=== PATIENT | female | born 1950 | race Caucasian/White ===

== ENCOUNTER 2017-08-22 21:50 | Observation (INO) | payer MEDICARE, SELFPAY ==
[2017-08-22 21:51] VITALS: BP 155/71; PULSE 111; RESP 20; TEMP 36.7; O2SAT 99; BMI 28.8
--- NOTE | 2017-08-22 22:14 | EKG12_ITS ---
Test Reason : CP Blood Pressure : / mmHG Vent. Rate : 106 BPM Atrial Rate : 106 BPM P-R Int : 160 ms QRS Dur : 074 ms QT Int : 348 ms P-R-T Axes : 036 -08 030 degrees QTc Int : 462 ms Sinus tachycardia Nonspecific ST abnormality Abnormal ECG Confirmed by LORRIE MATSON, BRIAN ([id number]), book or script editor BRENT SCHROEDER ([id number]) on 08/24/2017 1:46:28 PM Referred By: BARBARA Confirmed By:BRIAN ANDREW MD
--- NOTE | 2017-08-22 22:20 | ED.DCSUM_ITS ---
- ER Visit Summary Date of Service: 08/22/17 Chief Complaint: [] Chest pain History of Present Illness: The patient is a 66 F patient presents with chest pain for the last 4 hours gradual onset continuous aching right-sided pain. She feels it radiates to her right neck. Worsened by deep breathing. No sharp component. She took a full-strength aspirin. She had a remote stress test 30 years ago. It was negative. She has never had a heart cath. She has never had symptoms like this before. She has a history of high cholesterol and smoking. No other cardiovascular risk factors. No PE or dissection risk factors. Physical Examination: [] Vital signs reviewed General: Well-nourished well-developed Head: Normocephalic atraumatic Eyes: Pupils equal round and reactive to light extraocular movements intact ENT: TMs clear no hemotympanum no trauma Neck: Nontender full range of motion Cardiovascular: Regular tachycardia with normal rhythm no murmurs normal S1-S2 Respiratory: No distress clear to auscultation bilaterally chest nontender Abdomen: Soft nontender nondistended normal bowel sounds no masses Back: Nontender no CVA tenderness Extremities: Nontender active range of motion ?4 extremities no trauma no swelling of pain and Skin: Normal color no trauma Neuro alert oriented cranial nerves II through XII intact normal strength sensation reflexes Test Results: [] Emergency Department Course and Treatment: [] EKG shows sinus rhythm at a rate of 106. No ischemic findings. patient given sublingual nitroglycerin. CBC chemistry normal except potassium 3.4. Troponin negative. D-dimer 2.1. Chest x-ray shows focal airspace city left side. CT of the chest shows no PE or dissection. Mild dilation of the ascending and descending thoracic aorta consistent with ectasia. Sizes just larger than 4 cm. On reevaluation patient still has some mild discomfort. Nothing in her neck. She does not want any further pain medication. Nitroglycerin did help some. At this time I feel she should be admitted for further evaluation of her chest pain. Treatment Plan: [] Disposition: [] Impression: [] Chest pain Thoracic aortic ectasia This note was generated with Learn with Homer dictation software. It may contain incorrect words, spelling, and punctuation that were not noted in review of the chart prior to signing ED Disposition - Plan for ED Patient: Chief Complaint: Chest Pain Referrals: Jahaira Malik, DO [NON-STAFF] -
[2017-08-22 22:31] VITALS: BP 180/141; PULSE 99
--- NOTE | 2017-08-22 22:35 | RAD_ITS ---
XR Chest 2 Views INDICATION: chest pain COMPARISON: None TECHNIQUE: 2 views of the chest FINDINGS: Focal airspace opacity is noted at the left lung base with blunting of the posterior costophrenic angle. Right lung is clear. Heart size and pulmonary vascularity are within normal limits. RAD/Chest PA and Lateral IMPRESSION: Small focal airspace opacity in the left lower lobe posteriorly, may represent atelectasis or developing infiltrate, consider short-term follow-up. at 2333 Reported and signed by: Ruthann Brewster MD Electronically Signed: Ruthann Brewster MD at 22:31 EST Tel , Service support ,
[2017-08-22 22:36] VITALS: BP 163/122; PULSE 106
[2017-08-22 22:41] VITALS: BP 144/98; PULSE 110
[2017-08-22 22:44] LABS: Absolute Lymphocyte Count 2.88 X10^3/ul (0.83-4.51); Absolute Neutrophil Count 5.6 X10^3/uL (2.0-7.7); Basophil# 0.03 X10^3/uL; Basophil% 0.3 % (0-1); Eosinophil# 0.08 X10^3/uL; Eosinophils% 0.9 % (0-5); Hematocrit 41.6 % (37-47); Hemoglobin 13.2 g/dl (12.0-15.0); Lymphocyte # 2.88 X10^3/ul (4.0); Lymphocyte % 30.7 % (19-41); Mean Corp Hgb Conc 31.7 g/gl (32-36); Mean Corpuscular Hgb 30.4 pg (27.0-32.0); Mean Corpuscular Volume 95.9 fL (81-99); Mean Platelet Vol. 9.7 fl (6.2-12.0); Monocyte# 0.78 X10^3/uL; Monocyte% 8.3 % (0-10); Neutrophil # 5.61 X10^3/uL (2.7-7.7); Neutrophil % 59.7 % (47-70); Platelet Count 390 K/mm3 (150-450); RBC Distribution Width CV 14.7 % (11.6-14.6); RBC Distribution Width SD 51.5 fl (35.1-43.9); Red Blood Count 4.34 M/mm3 (4.2-5.4); White Blood Count 9.4 K/mm3 (4.4-11.0)
[2017-08-22 22:46] LABS: POSITIVE COUNT NO; POSITIVE DIFFERENTIAL NO; POSITIVE MORPHOLOGY NO
[2017-08-22 22:52] VITALS: BP 99/78; PULSE 104; RESP 20
[2017-08-22 22:58] LABS: Anion Gap 8 (5-15); BUN 16 mg/dL (7-18); BUN/Creat Ratio 26.7 RATIO (10-20); Calcium,Total 9.1 mg/dL (8.5-10.1); Chloride 106 mmol/L (98-107); EST Glomerular Filtration Rate 106 mL/min (>60); Est Glom Filt Rate - Afr Amer 128 mL/min (>60); Estimated Creatinine Clearance 51.81 ml/min; Glucose 114 mg/dL (74-106); Potassium 3.4 mmol/L (3.5-5.1); Sodium Level 142 mmol/L (136-145)
[2017-08-22 23:13] LABS: D-Dimer Quantitative (DVT/PE) 2.17 FEU/ug/m (0.27-0.49)
--- NOTE | 2017-08-22 23:15 | CT_ITS ---
STUDY: CTA CHEST REASON FOR EXAM: Female, 66 years old. Right-sided chest pain radiating into neck, elevated d-dimer and elevated blood pressure. RADIATION DOSAGE (If Supplied By Facility): CTDIvol = ( 15.03 ) mGy, DLP = ( 573.16 ) mGycm TECHNIQUE: The examination was performed with the intravenous administration of 100 ml of Isovue 370 contrast material. Post-processing of the angiographic images was performed, with multiplanar reformation and 3D reconstruction. Individualized dose optimization techniques were used for this CT. COMPARISON: Chest x-ray 08/22/2017 FINDINGS: Heterogeneous thyroid enhancement. Normal enhancement of the main pulmonary artery and right and left pulmonary arteries. Normal enhancement of the bilateral peripheral pulmonary arteries. There is no demonstrated pulmonary embolism. There is mild aneurysmal dilatation of the ascending aorta post valvular measuring 4.3 x 4.3 cm, the descending thoracic aorta measuring 3.4 x 3.5 cm. There is a focal outpouching/aneurysm involving the proximal descending thoracic aorta at the aortic arch level distal to the left subclavian artery origin. There is mild atherosclerosis of the aorta and along the aortic arch. The descending thoracic aorta at the diaphragm level measures 3.3 x 3.3 cm and enlarges to 3.4 x 4.1 cm, the abdominal aorta at the celiac artery origin measures 2.8 x 3.4 cm. The last obtained images demonstrate irregular enhancement with calcification just inferior to the proximal superior mesenteric artery course which may be due to an incompletely imaged vascular abnormality such as an aneurysm of the abdominal aorta. There is no demonstrated aortic dissection. Normal heart and pericardium. There are calcifications of the coronary arteries. Normal mediastinum. Normal hilar regions. Normal visualized trachea and bronchi. The lungs are well expanded. Linear interstitial changes involving the lung bases and left lingula some of which may be due to compression of parenchyma and atelectasis, there are no bronchograms to suggest acute focal pneumonia. Normal pleura. Normal chest wall structures. Normal osseous structures. Punctate nonobstructing left upper renal pole calculus. Status postcholecystectomy. CT/CTA Chest W/WO Contrast IMPRESSION: 1. No demonstrated pulmonary embolism, leak or arterial dissection. 2. Ectasia/mild aneurysm of the ascending thoracic aorta, proximal descending thoracic aorta just distal to the left subclavian artery origin and at the diaphragmatic hiatus level. 3. Possible vascular abnormality of the upper abdomen such as a aneurysm, incompletely imaged on last obtained image. Depending on symptoms, further assessment with CT abdomen and pelvis may be contiguous. 4. Atherosclerosis and coronary artery disease. 5. Suspect compression of the basilar parenchyma, scarring versus atelectasis. No confluent pneumonia detected. 6. Heterogeneous thyroid enhancement, this can be further assessed with ultrasound as needed. 7. Electronically Signed: Selam Mccoy MD at 0:48 EST , Service support ,
[2017-08-22] MEDS: 0.9% Normal Saline 1,000 ML 1000 ML IV (23:30)
[2017-08-22 23:32] VITALS: BP 117/93; PULSE 94; RESP 20; O2SAT 95
[2017-08-23] VITALS (11 sets, daily range): BP systolic 105–164; BP diastolic 69–102; PULSE 83–103; RESP 16–21; TEMP 36.3–36.8; O2SAT 93–95; BMI 28.8
--- NOTE | 2017-08-23 01:20 | PCM.HP.STD ---
Problem List (1) Chest pain Status: Acute Qualifiers: Chest pain type: unspecified Qualified Code(s): R07.9 - Chest pain, unspecified (2) Aortic aneurysm Status: Chronic Qualifiers: Aortic location: thoracic aorta Presence of rupture: without rupture Qualified Code(s): I71.2 - Thoracic aortic aneurysm, without rupture (3) Hypertension Status: Chronic Qualifiers: Hypertension type: unspecified Qualified Code(s): I10 - Essential (primary) hypertension (4) Smoking Status: Chronic History of Present Illness Date of Admission: 08/23/17 Chief Complaint: chest pain The patient is a 66 year old female patient presents to the ER with acute chest pain. Onset began after she took a shower this evening. She describes the pain as an ache on the right side of her chest with some radiation up her right neck. The pain was 8/10 when she arrived and is now 3/10. Initial troponin is negative and d-dimer was positive therefore a CTA of the chest was done. This was negative for PE but did reveal aneurysmal changes of the aorta. She has not had a cardiac stress test in many years. She continues to smoke and states she does not go to her doctor unless she is dying. She will be admitted for further cardiac workup. Past Medical History Past Medical History (Chronic Problems): Chronic Problems Aortic aneurysm (Chronic) Hypertension (Chronic) Smoking (Chronic) Allergies No Known Allergies Allergy (Verified 08/22/17 21:54) Home Medications: Ambulatory Orders Medication Instructions Recorded NK [NK] 08/22/17 Smoking Status: Current every day smoker - *Family History Maternal History Items: No pertinent history Review of Systems Constitutional: Denies: Chills, Fever, Weight Change HEENT: Denies: Head Aches, Sinus Congestion, Sinus Drainage Cardiovascular: Reports: Chest Pain, Chest Pressure. Denies: Palpitations Respiratory: Denies: Cough, Shortness of breath at rest, Sputum production Gastrointestinal: Denies: Abdominal Pain, Nausea, Vomiting Genitourinary: Denies: Dysuria Musculoskeletal: Denies: Joint Pain, Joint Tenderness Skin: Denies: Rash, Wounds Neurological: Denies: Numbness, Tingling, Focal weakness Psychiatric: Denies: Anxiety, Depression, Homicidal Ideations, Suicidal Ideations Hematologic/ Lymphatic: Denies: Easy Bruising, Easy Bleeding VTE Information - Inpt Only VTE Present on Admission: No VTE Mechan Device Prophylaxis: None VTE Pharm Prophylaxis ordered?: Yes Patient Problems: Active and Suspected Problems Chest pain (Acute) - Physical Exam General: Alert, Oriented x3, Cooperative HEENT: Atraumatic, Normocephalic Neck: Supple Lungs: Clear to auscultation, Normal air movement, No rhonchi, No wheeze, No rales Cardiovascular: Regular rate, Regular Rhythm, Normal S1, Normal S2, No murmurs Abdomen: Bowel Sounds Present, Soft, Non Tender Extremities: No edema Skin: No rashes Musculoskeletal: No Tenderness to Palpation of Joints or Extremities Neurological: Neuro grossly intact Psych/Mental Status: Normal Affect, Appropriate Vital Signs Temp Pulse Resp BP Pulse Ox 98.0 F 83 18 105/73 95 08/22/17 21:51 08/23/17 00:08 08/23/17 00:08 08/23/17 00:08 08/22/17 23:32 Oxygen Flow Rate 2 Oxygen Delivery Method Room Air Weight: 178 lb 5.663 oz Body Mass Index (BMI) 28.8 Laboratory Tests Past 24 Hrs 08/22/17 08/22/17 08/22/17 22:30 22:30 22:30 WBC 9.4 RBC 4.34 Hgb 13.2 Hct 41.6 MCV 95.9 MCH 30.4 MCHC 31.7 L RDW 14.7 H RDW Differential 51.5 H Plt Count 390 MPV 9.7 Immature Gran % (Auto) 0.100 Neut % (Auto) 59.7 Lymph % (Auto) 30.7 [place] % (Auto) 8.3 Eos % (Auto) 0.9 Baso % (Auto) 0.3 Absolute Neuts (auto) 5.6 Absolute Lymphs (auto) 2.88 Total Counted Not Reportable D-Dimer Quant (PE/DVT) 2.17 H* Sodium 142 Potassium 3.4 L Chloride 106 Carbon Dioxide 28.0 Anion Gap 8 BUN 16 Creatinine 0.60 Estim Creat Clear Calc 51.81 Est GFR (MDRD) Af Amer 128 Est GFR (MDRD) Non-Af 106 BUN/Creatinine Ratio 26.7 H Glucose 114 H Calcium 9.1 Troponin I < 0.02 Assessment/Plan Active and Suspected Problems Chest pain (Acute) Chronic conditions - aortic aneurysm 4cm - smoking - hypertension Plan - admit to progressive care unit for observation - morphine, oxygen, nitro and aspirin per routine protocol - nuclear stress test in am when cardiac enzymes are negative - smoking cessation discussed and strongly encouraged with finding of aneurysm ([id number]) - continue routine medications - perhaps a beta-myra at discharge would be helpful and close follow up with PCP - LMWH for DVT prophylaxis Code Visit OBSV E&M: 09593 Initial observation care L2
--- NOTE | 2017-08-23 01:28 | HP.PCM_ITS ---
Problem List (1) Chest pain Status: Acute Qualifiers: Chest pain type: unspecified Qualified Code(s): R07.9 - Chest pain, unspecified (2) Aortic aneurysm Status: Chronic Qualifiers: Aortic location: thoracic aorta Presence of rupture: without rupture Qualified Code(s): I71.2 - Thoracic aortic aneurysm, without rupture (3) Hypertension Status: Chronic Qualifiers: Hypertension type: unspecified Qualified Code(s): I10 - Essential (primary ) hypertension (4) Smoking Status: Chronic History of Present Illness Date of Admission: 08/23/17 Chief Complaint: chest pain The patient is a 66 year old female patient presents to the ER with acute chest pain. Onset began after she took a shower this evening. She describes the pain as an ache on the right side of her chest with some radiation up her right neck. The pain was 8/10 when she arrived and is now 3/10. Initial troponin is negative and d-dimer was positive therefore a CTA of the chest was done. This was negative for PE but did reveal aneurysmal changes of the aorta. She has not had a cardiac stress test in many years. She continues to smoke and states she does not go to her doctor unless she is dying. She will be admitted for further cardiac workup. Past Medical History Past Medical History (Chronic Problems): Chronic Problems Aortic aneurysm (Chronic) Hypertension (Chronic) Smoking (Chronic) Allergies No Known Allergies Allergy (Verified 08/22/17 21:54) Home Medications: Ambulatory Orders Medication Instructions Recorded NK [NK] 08/22/17 Smoking Status: Current every day smoker - *Family History Maternal History Items: No pertinent history Review of Systems Constitutional: Denies: Chills, Fever, Weight Change HEENT: Denies: Head Aches, Sinus Congestion, Sinus Drainage Cardiovascular: Reports: Chest Pain, Chest Pressure. Denies: Palpitations Respiratory: Denies: Cough, Shortness of breath at rest, Sputum production Gastrointestinal: Denies: Abdominal Pain, Nausea, Vomiting Genitourinary: Denies: Dysuria Musculoskeletal: Denies: Joint Pain, Joint Tenderness Skin: Denies: Rash, Wounds Neurological: Denies: Numbness, Tingling, Focal weakness Psychiatric: Denies: Anxiety, Depression, Homicidal Ideations, Suicidal Ideations Hematologic/ Lymphatic: Denies: Easy Bruising, Easy Bleeding VTE Information - Inpt Only VTE Present on Admission: No VTE Mechan Device Prophylaxis: None VTE Pharm Prophylaxis ordered?: Yes Patient Problems: Active and Suspected Problems Chest pain (Acute) - Physical Exam General: Alert, Oriented x3, Cooperative HEENT: Atraumatic, Normocephalic Neck: Supple Lungs: Clear to auscultation, Normal air movement, No rhonchi, No wheeze, No rales Cardiovascular: Regular rate, Regular Rhythm, Normal S1, Normal S2, No murmurs Abdomen: Bowel Sounds Present, Soft, Non Tender Extremities: No edema Skin: No rashes Musculoskeletal: No Tenderness to Palpation of Joints or Extremities Neurological: Neuro grossly intact Psych/Mental Status: Normal Affect, Appropriate Vital Signs Temp Pulse Resp BP Pulse Ox 98.0 F 83 18 105/73 95 08/22/17 21:51 08/23/17 00:08 08/23/17 00:08 08/23/17 00:08 08/22/17 23:32 Oxygen Flow Rate 2 Oxygen Delivery Method Room Air Weight: 178 lb 5.663 oz Body Mass Index (BMI) 28.8 Laboratory Tests Past 24 Hrs 08/22/17 08/22/17 08/22/17 22:30 22:30 22:30 WBC 9.4 RBC 4.34 Hgb 13.2 Hct 41.6 MCV 95.9 MCH 30.4 MCHC 31.7 L RDW 14.7 H RDW Differential 51.5 H Plt Count 390 MPV 9.7 Immature Gran % (Auto) 0.100 Neut % (Auto) 59.7 Lymph % (Auto) 30.7 [place] % (Auto) 8.3 Eos % (Auto) 0.9 Baso % (Auto) 0.3 Absolute Neuts (auto) 5.6 Absolute Lymphs (auto) 2.88 Total Counted Not Reportable D-Dimer Quant (PE/DVT) 2.17 H* Sodium 142 Potassium 3.4 L Chloride 106 Carbon Dioxide 28.0 Anion Gap 8 BUN 16 Creatinine 0.60 Estim Creat Clear Calc 51.81 Est GFR (MDRD) Af Amer 128 Est GFR (MDRD) Non-Af 106 BUN/Creatinine Ratio 26.7 H Glucose 114 H Calcium 9.1 Troponin I < 0.02 Assessment/Plan Active and Suspected Problems Chest pain (Acute) Chronic conditions - aortic aneurysm 4cm - smoking - hypertension Plan - admit to progressive care unit for observation - morphine, oxygen, nitro and aspirin per routine protocol - nuclear stress test in am when cardiac enzymes are negative - smoking cessation discussed and strongly encouraged with finding of aneurysm ( [id number]) - continue routine medications - perhaps a beta-myra at discharge would be helpful and close follow up with PCP - LMWH for DVT prophylaxis Code Visit OBSV E&M: 40659 Initial observation care L2
--- NOTE | 2017-08-23 02:49 | EKG12_ITS ---
Test Reason : AM Blood Pressure : / mmHG Vent. Rate : 101 BPM Atrial Rate : 101 BPM P-R Int : 160 ms QRS Dur : 080 ms QT Int : 354 ms P-R-T Axes : 007 -11 015 degrees QTc Int : 459 ms Sinus tachycardia with occasional Premature ventricular complexes Inferior infarct , age undetermined Abnormal ECG When compared with ECG of 25-APR-2009 08:07, Premature ventricular complexes are now Present Inferior infarct is now Present Confirmed by ISABEL RANDLE ([id number]), news editor BRENT SCHROEDER ([id number]) on 08/25/2017 3:16:40 PM Referred By: SHERIN Confirmed By:ISABEL RANDLE
[2017-08-23] MEDS: Aspirin E.C. 81 MG Tablet PO (06:23)
[2017-08-23 07:07] LABS: Absolute Neutrophil Count 6.5 X10^3/uL (2.0-7.7); Basophil# 0.06 X10^3/uL; Basophil% 0.6 % (0-1); Eosinophil# 0.03 X10^3/uL; Eosinophils% 0.3 % (0-5); Hematocrit 39.7 % (37-47); Hemoglobin 12.8 g/dl (12.0-15.0); Lymphocyte % 21.7 % (19-41); Mean Corp Hgb Conc 32.2 g/gl (32-36); Mean Corpuscular Hgb 30.8 pg (27.0-32.0); Mean Corpuscular Volume 95.7 fL (81-99); Mean Platelet Vol. 9.8 fl (6.2-12.0); Monocyte# 0.93 X10^3/uL; Monocyte% 9.6 % (0-10); Neutrophil # 6.54 X10^3/uL (2.7-7.7); Neutrophil % 67.7 % (47-70); Platelet Count 373 K/mm3 (150-450); RBC Distribution Width CV 14.7 % (11.6-14.6); RBC Distribution Width SD 49.5 fl (35.1-43.9); Red Blood Count 4.15 M/mm3 (4.2-5.4); White Blood Count 9.7 K/mm3 (4.4-11.0)
[2017-08-23 07:08] LABS: International Normalized Ratio 1.2; Prothrombin Time (Protime)PT. 14.3 SECONDS (11.7-14.9)
[2017-08-23 07:09] LABS: Partial Thromboplast Time 29.8 Seconds (24.1-36.2)
[2017-08-23 07:10] LABS: POSITIVE COUNT NO; POSITIVE DIFFERENTIAL NO; POSITIVE MORPHOLOGY NO
[2017-08-23 07:35] LABS: ALB/GLOB Ratio 0.8 RATIO (0.9-2.4); AST(SGOT) 19 U/L (15-37); Alanine Aminotransfer ALT/SGPT 27 U/L (13-56); Albumin, Serum 3.4 g/dL (3.2-5.0); Alkaline Phosphatase 104 U/L (45-117); Anion Gap 10 (5-15); BUN 10 mg/dL (7-18); BUN/Creat Ratio 19.6 RATIO (10-20); Calcium,Total 8.7 mg/dL (8.5-10.1); Chloride 106 mmol/L (98-107); Cholesterol 214 mg/dL (200); Creatinine, Serum 0.51 mg/dL (0.55-1.02); EST Glomerular Filtration Rate 128 mL/min (>60); Est Glom Filt Rate - Afr Amer 155 mL/min (>60); Estimated Creatinine Clearance 51.81 ml/min; Globulin 4.3 g/dL (2.2-4.2); Glucose 112 mg/dL (74-106); High Density Lipoprotein 40 mg/dL; Potassium 3.7 mmol/L (3.5-5.1); Protein, Total 7.7 g/dL (6.4-8.2); Sodium Level 142 mmol/L (136-145); Thyroid Stim Hormone (TSH) 1.01 uIU/mL (0.358-3.74); Triglycerides 263 mg/dL; Very Low Density Lipoprotein 53 mg/dL (5-40)
--- NOTE | 2017-08-23 14:52 | STRESSREP ---
Stress Test Report Date: 08/23/2017 Procedure: Exercise tolerance test/imaging study Indication: Chest pain Sent: Per the patient Procedure: The patient exercised on a José Antonio protocol for 4 minutes 45 seconds completing stage I and I minute 45 seconds of stage II achieving a peak heart rate of 136 bpm (88% predicted maximal heart rate) with a peak blood pressure 142/78 mmHg and a peak MET capacity of approximately 6 MET's. The baseline ECG demonstrated normal sinus rhythm. The peak exercise ECG demonstrated no obvious ECG changes. There was a rare PVC during exercise. The functional capacity was considered decreased. There was no report of chest discomfort during exercise or recovery. The examination was discontinued secondary to dyspnea. Impression: 1. Technically adequate (percent predicted maximal heart rate greater than 85%) exercise tolerance test 2. Peak exercise ECG with no obvious ECG changes 3. Rare PVC during exercise 4. Nuclear images pending Myocardial imaging study: Technique: The patient was injected with 11.4 mCi of technetium 99m Cardiolite and subsequently rest SPECT Cardiolite nuclear imaging was obtained in the horizontal long, vertical long, and short axis views. The patient exercised on a José Antonio protocol for 4 minutes 45 seconds completing stage I and I minute 45 seconds of stage II achieving a peak heart rate of 136 bpm (88% predicted maximal heart rate) with a peak blood pressure 142/78 mmHg and a peak MET capacity of approximately 6 MET's the patient was injected with 32.3 mCi of technetium 99m Cardiolite and subsequently stress SPECT Cardiolite nuclear imaging was obtained in the horizontal long, vertical long, and short axis views. A gated Cardiolite study at peak stress was obtained. Interpretation: Rest and stress SPECT Cardiolite nuclear imaging status post realignment, normalization, and attenuation correction demonstrates the appearance of relative uniform tracer uptake and myocardial perfusion appearing within normal limits. There is end systolic thickening and brightening. The gated Cardiolite study demonstrates myocardial thickening and inward wall motion. The reported LVEF is 85%. Impression: 1. Rest and stress SPECT cardio light nuclear imaging demonstrate relative uniform tracer uptake and myocardial perfusion appearing within normal limits. 2. The gated Cardiolite study reports an LVEF of 75%. This note was generated with [employer] software. It may contain incorrect words, spelling, and punctuation that were not noted in checking the note before signing.
--- NOTE | 2017-08-23 14:55 | PCM.DC ---
- Discharge Diagnoses Current Active Problems: Current Active and Chronic Problems Chest pain (Acute) Aortic aneurysm (Chronic) Hypertension (Chronic) Smoking (Chronic) You will use the following diet at home:: Regular, Cardiac Discharge Activity: Return to Normal Activity Instructions: ED Chest Pain NonCardiac Allergies/Adverse Reactions: Allergies No Known Allergies Allergy (Verified 08/22/17 21:54) Primary Care Physician: Jahaira Malik DO [NON-STAFF] - In 1 Week
--- NOTE | 2017-08-23 14:56 | PCM.DC.SUM ---
Discharge Date and Diagnosis Date of Admission: 08/23/17 Date of Discharge: 08/23/17 - Primary Discharge Diagnosis Active and Suspected Problems Chest pain (Acute) - Secondary Discharge Diagnosis Chronic Problems Aortic aneurysm (Chronic) Hypertension (Chronic) Smoking (Chronic) Hospital Course and Treatment Summary of Care Provided: This a 66 year old female patient presents to the ED with acute chest pain. This started after she took a shower in the evening chest pain was located on the right side of her chest wall and radiated to the neck so patient presented to the emergency room for evaluation. CT scan of the chest PE protocol was obtained and negative. Patient was then admitted to the hospital for observation, she ruled out acute coronary syndrome with negative cardiac enzymes. He then underwent a stress test that was negative for ischemia and she was discharged home in a stable condition. Discharge Diet: No Restrictions Discharge Activity: Return to Normal Activity Primary Care Physician: Jahaira Malik DO [NON-STAFF] - In 1 Week Patient Instructions: ED Chest Pain NonCardiac Meaningful Use Info Meaningful Use Diagnoses (Choose all that apply): None applicable Code Visit OBSV E&M: 44028 Observation care discharge
--- NOTE | 2017-08-23 14:58 | STRESSREP_ITS ---
Stress Test Report Date: 08/23/2017 Procedure: Exercise tolerance test/imaging study Indication: Chest pain Sent: Per the patient Procedure: The patient exercised on a José Antonio protocol for 4 minutes 45 seconds completing stage I and I minute 45 seconds of stage II achieving a peak heart rate of 136 bpm (88% predicted maximal heart rate) with a peak blood pressure 142/78 mmHg and a peak MET capacity of approximately 6 MET's. The baseline ECG demonstrated normal sinus rhythm. The peak exercise ECG demonstrated no obvious ECG changes. There was a rare PVC during exercise. The functional capacity was considered decreased. There was no report of chest discomfort during exercise or recovery. The examination was discontinued secondary to dyspnea. Impression: 1. Technically adequate (percent predicted maximal heart rate greater than 85% ) exercise tolerance test 2. Peak exercise ECG with no obvious ECG changes 3. Rare PVC during exercise 4. Nuclear images pending Myocardial imaging study: Technique: The patient was injected with 11.4 mCi of technetium 99m Cardiolite and subsequently rest SPECT Cardiolite nuclear imaging was obtained in the horizontal long, vertical long, and short axis views. The patient exercised on a José Antonio protocol for 4 minutes 45 seconds completing stage I and I minute 45 seconds of stage II achieving a peak heart rate of 136 bpm (88% predicted maximal heart rate) with a peak blood pressure 142/78 mmHg and a peak MET capacity of approximately 6 MET's the patient was injected with 32.3 mCi of technetium 99m Cardiolite and subsequently stress SPECT Cardiolite nuclear imaging was obtained in the horizontal long, vertical long, and short axis views. A gated Cardiolite study at peak stress was obtained. Interpretation: Rest and stress SPECT Cardiolite nuclear imaging status post realignment, normalization, and attenuation correction demonstrates the appearance of relative uniform tracer uptake and myocardial perfusion appearing within normal limits. There is end systolic thickening and brightening. The gated Cardiolite study demonstrates myocardial thickening and inward wall motion. The reported LVEF is 85%. Impression: 1. Rest and stress SPECT cardio light nuclear imaging demonstrate relative uniform tracer uptake and myocardial perfusion appearing within normal limits. 2. The gated Cardiolite study reports an LVEF of 75%. This note was generated with [employer] software. It may contain incorrect words, spelling, and punctuation that were not noted in checking the note before signing.
== END 2017-08-23 15:32 | disposition home or self-care (01) ==
LOC: ED 23:18 → PCU 08-23 01:35
PROVIDERS: Admitting Provider Family Medicine; Emergency Provider Emergency Medicine; Visit Provider Internal Medicine
DX: R07.89 Other chest pain (principal); E78.00 Pure hypercholesterolemia, unspecified; F17.200 Nicotine dependence, unspecified, uncomplicated; I71.2 Thoracic aortic aneurysm, without rupture; I10 Essential (primary) hypertension
CPT/HCPCS: 36415; 71046; 71275; 78452; 80048; 80053; 80061; 82248; 83735; 84443; 84484; 85025; 85379; 85610; 85730; 93005; 93017; 96360; 96361; 99218; 99283; A9500; J7030; Q9967; A4216; G0378

== ENCOUNTER 2017-10-23 01:03 | Emergency (ER) | payer MEDICARE, SELFPAY ==
[2017-10-23] VITALS (12 sets, daily range): BP systolic 63–128; BP diastolic 33–82; PULSE 95–114; RESP 18–39; TEMP 35.1–35.6; O2SAT 91–98; BMI 31.6
[2017-10-23] MEDS: 0.9% Normal Saline 1,000 ML 1000 ML IV (01:20)
--- NOTE | 2017-10-23 01:32 | EKG12_ITS ---
Test Reason : ABD PAIN Blood Pressure : / mmHG Vent. Rate : 104 BPM Atrial Rate : 104 BPM P-R Int : 144 ms QRS Dur : 086 ms QT Int : 370 ms P-R-T Axes : 041 029 -21 degrees QTc Int : [address] & T wave abnormality, consider inferior ischemia Abnormal ECG Confirmed by LORRIE MATSON, BRIAN ([id number]), newspaper or periodical editor BRENT SCHROEDER ([id number]) on 10/24/2017 2:19:15 PM Referred By: SAGRARIO Confirmed By:BRIAN ANDREW MD
--- NOTE | 2017-10-23 01:32 | CT_ITS ---
STUDY: CT ABDOMEN AND PELVIS WITH CONTRAST REASON FOR EXAM: Female, 67 years old. Abdominal pain and weakness RADIATION DOSAGE (If Supplied By Facility): CTDIvol = ( 26.21 ) mGy, DLP = ( 1418.03 ) mGycm TECHNIQUE: Transaxial images were obtained from the dome of the diaphragm to the symphysis pubis without oral contrast. 100 ml of Isovue 300 contrast was administered. Sagittal and coronal images were reconstructed. Individualized dose optimization techniques were used for this CT. COMPARISON: None. FINDINGS: The visualized lung bases are unremarkable. The visualized portions of the heart are within normal limits. There is decreased attenuation of the liver consistent with steatosis. There are surgical clips in the gallbladder fossa consistent with a prior cholecystectomy. Normal spleen. Normal pancreas. Normal bilateral adrenal glands. 2 mm nonobstructing right renal calculus. Normal left kidney. Normal visualized stomach. Normal small intestine. There are multiple colonic diverticula consistent with diverticulosis. The appendix is visualized and appears normal. An infrarenal abdominal aortic aneurysm is present that measures up to 9.5 cm in diameter. It extends from just below the renal arteries to the iliac bifurcation. Acute abdominal aortic aneurysm rupture and extravasation is noted on the left side with evolving extensive left periaortic, perinephric, and retroperitoneal hematoma formation. There is displacement of the left kidney anteriorly. Blood products are present extensively in the left retroperitoneum extending into the pelvis. Normal inferior vena cava. Normal urinary bladder. The left gonadal artery arises from the left renal artery. Normal abdominal wall. Normal osseous structures. CT/Abdomen/Pelvis W IV Cont ONLY IMPRESSION: 9.5 cm abdominal aortic aneurysm with acute rupture and extravasation on the left side. Extensive left retroperitoneal hemorrhage extending into the pelvis. Critical results relayed by telephone to Dr. Antunez at 1:59 AM on 10/23/2017. N.B. : The above information has been verbally conveyed by Greg Perez MD to , Covering Physician, on 10/23/2017 02:03:16 (ET). Electronically Signed: Greg Perez MD at 2:04 EDT Tel , Service support , N.B. : The above information has been verbally conveyed by Greg Perez MD to , [facility] Physician, on 10/23/2017 02:03:16 (ET).
[2017-10-23] MEDS: Ondansetron 4 MG/2 ML Vial IV (01:47)
[2017-10-23 01:50] LABS: Absolute Lymphocyte Count 2.12 X10^3/ul (0.83-4.51); Basophil# 0.02 X10^3/uL; Basophil% 0.1 % (0-1); Eosinophil# 0.02 X10^3/uL; Eosinophils% 0.1 % (0-5); Hematocrit 40.4 % (37-47); Hemoglobin 12.4 g/dl (12.0-15.0); Lymphocyte # 2.12 X10^3/ul (4.0); Lymphocyte % 12.9 % (19-41); Mean Corp Hgb Conc 30.7 g/gl (32-36); Mean Corpuscular Hgb 30.6 pg (27.0-32.0); Mean Corpuscular Volume 99.8 fL (81-99); Mean Platelet Vol. 10.6 fl (6.2-12.0); Monocyte# 1.23 X10^3/uL; Monocyte% 7.5 % (0-10); Neutrophil # 12.96 X10^3/uL (2.7-7.7); Neutrophil % 78.9 % (47-70); Platelet Count 312 K/mm3 (150-450); RBC Distribution Width CV 15.4 % (11.6-14.6); RBC Distribution Width SD 56.1 fl (35.1-43.9); Red Blood Count 4.05 M/mm3 (4.2-5.4); White Blood Count 16.4 K/mm3 (4.4-11.0)
[2017-10-23 01:51] LABS: POSITIVE COUNT NO; POSITIVE DIFFERENTIAL NO; POSITIVE MORPHOLOGY NO
[2017-10-23 01:53] LABS: Bacteria 0 SEEN /hpf (None Seen)
[2017-10-23 01:54] LABS: Color, Urine Yellow (Yellow); Glucose, Dipstick 50 mg/dl (Normal); Ketone-Dipstick 50 mg/dl (Negative); Leukocyte Esterase-Dipstick 25 /ul (Negative); Nitrite-Dipstick Negative (Negative); Occult Blood-Urine 50 /ul (Negative); Protein-Dipstick 500 mg/dl (Negative); Urine Bilirubin Dipstick Negative (Negative); Urine Clarity Clear (Clear); Urine Urobilinogen Normal (Normal)
[2017-10-23] MEDS: 0.9% Normal Saline 1,000 ML 999 ML IV (02:01)
[2017-10-23 02:05] LABS: AST(SGOT) 35 U/L (15-37); Alanine Aminotransfer ALT/SGPT 34 U/L (13-56); Albumin, Serum 3.8 g/dL (3.2-5.0); Alkaline Phosphatase 114 U/L (45-117); Anion Gap 26 (5-15); BUN 19 mg/dL (7-18); BUN/Creat Ratio 9.1 RATIO (10-20); Bilirubin, Direct 0.13 mg/dL (0.00-0.30); Chloride 100 mmol/L (98-107); Creatinine, Serum 2.08 mg/dL (0.55-1.02); EST Glomerular Filtration Rate 25 mL/min (>60); Est Glom Filt Rate - Afr Amer 31 mL/min (>60); Estimated Creatinine Clearance 24.57 ml/min; Globulin 4.2 g/dL (2.2-4.2); Glucose 352 mg/dL (74-106); Lipase 176 U/L (73-393); Potassium 3.2 mmol/L (3.5-5.1); Sodium Level 140 mmol/L (136-145)
--- NOTE | 2017-10-23 02:05 | ED.VISSUMM ---
- ER Visit Summary Date of Service: 10/23/17 Chief Complaint: Abdominal pain History of Present Illness: The patient is a 67 F history of prior cholecystectomy and tubal ligation. states that this morning she started having epigastric abdominal pain that progressively got worse. This started around 6 AM on Tuesday morning. She is also developed nausea and vomiting. Physical Examination: 67-year-old female who is hypotensive and pale. Clinically looks very ill. HEENT exam unremarkable. Neck nontender. Lungs clear to auscultation. Heart rate of about 105. Abdomen is soft with epigastric abdominal pain. Patient is an old right upper quadrant surgical scar from her prior cholecystectomy. Positive bowel sounds. She is moving all 4 extremities. She does have a femoral pulse. Skin is pale. Patient is awake and alert and answers questions. Test Results: CBC shows a white count of 16 H&H 12 and 4078 segs. Electrolytes show an anion gap of 26 carbon dioxide of 14 consistent with a metabolic acidosis. Glucose 352. Creatinine 2.08. Liver enzymes and lipase were normal. INR was normal. UA was normal. Troponin was slightly elevated 0.51 and lactic acid was 15.5 kg showed a sinus tachycardia rate of [address] elevation in the inferior leads. Concerning for acute cardiac ischemia. This was changed from a prior EKG from August 2017. CT abdomen pelvis was performed shortly at the patient's arrival to the concern of an abdominal catastrophe. Showing a 9.5 cm abdominal aortic aneurysm starting from just below the renal arteries down to the iliac crests with extravasation of the contrast cystoscopy with aneurysm rupture. Emergency Department Course and Treatment: Patient will be emergently taken to CAT scan. Treatment Plan: I very spoken to the [facility] Dr. Connelly accepted her in transfer. [employer] is here and just left with the patient. Due to patient's initial presentation of hypotension she was given 2 L normal saline and responded blood pressure was approximately 110/60. Once a CAT scan was performed she was given initially 2 units in the second 2 units for a total of 4 of trauma blood. I spoke to the patient's and explained to him how serious her overall prognosis was. She was intubated prior to transfer. He was given succinyl choline only. It abated on the first attempt with a 7F ET tube and bilateral breath sounds were heard. Disposition: Transfer to the [facility] Impression: Acute abdominal pain secondary to ruptured 9.5 cm abdominal aortic aneurysm or retroperitoneal bleeding. Severe hypotension Lactic acidosis Hemorrhagic shock Critical care time 35 minutes This note was generated with [employer] dictation software. It may contain incorrect words, spelling, and punctuation that were not noted in review of the chart prior to signing ED Disposition - Plan for ED Patient: Disposition: [facility] - Main Chief Complaint: Abd Pain Referrals: Care Physician,No Primary [Primary Care Provider] -
[2017-10-23 02:18] LABS: International Normalized Ratio 1.2; Prothrombin Time (Protime)PT. 15.6 SECONDS (11.7-14.9)
[2017-10-23] MEDS: Succinylcholine Chloride 200 MG/10 ML Vial 100 MG IV (02:21)
[2017-10-23 02:25] LABS: Lactic Acid 15.5 mmol/L (0.4-2.0)
[2017-10-23 02:35] LABS: Mucous, Urine 2+ /hpf (<or=2+); Red Blood Cells-Urine 0-5 SEEN /hpf (0-5); Squamous Epithelial Cells - UA 0-5 SEEN /hpf (5-10); White Blood Cells 0-5 SEEN /hpf (0-5)
--- NOTE | 2017-10-23 02:38 | ED.DCSUM_ITS ---
- ER Visit Summary Date of Service: 10/23/17 Chief Complaint: Abdominal pain History of Present Illness: The patient is a 67 F history of prior cholecystectomy and tubal ligation. states that this morning she started having epigastric abdominal pain that progressively got worse. This started around 6 AM on Tuesday morning. She is also developed nausea and vomiting. Physical Examination: 67-year-old female who is hypotensive and pale. Clinically looks very ill. HEENT exam unremarkable. Neck nontender. Lungs clear to auscultation. Heart rate of about 105. Abdomen is soft with epigastric abdominal pain. Patient is an old right upper quadrant surgical scar from her prior cholecystectomy. Positive bowel sounds. She is moving all 4 extremities. She does have a femoral pulse. Skin is pale. Patient is awake and alert and answers questions. Test Results: CBC shows a white count of 16 H&H 12 and 4078 segs. Electrolytes show an anion gap of 26 carbon dioxide of 14 consistent with a metabolic acidosis. Glucose 352. Creatinine 2.08. Liver enzymes and lipase were normal. INR was normal. UA was normal. Troponin was slightly elevated 0.51 and lactic acid was 15.5 kg showed a sinus tachycardia rate of [address] elevation in the inferior leads. Concerning for acute cardiac ischemia. This was changed from a prior EKG from August 2017. CT abdomen pelvis was performed shortly at the patient's arrival to the concern of an abdominal catastrophe. Showing a 9.5 cm abdominal aortic aneurysm starting from just below the renal arteries down to the iliac crests with extravasation of the contrast cystoscopy with aneurysm rupture. Emergency Department Course and Treatment: Patient will be emergently taken to CAT scan. Treatment Plan: I very spoken to the [facility] Dr. Connelly accepted her in transfer. [employer] is here and just left with the patient. Due to patient's initial presentation of hypotension she was given 2 L normal saline and responded blood pressure was approximately 110/60. Once a CAT scan was performed she was given initially 2 units in the second 2 units for a total of 4 of trauma blood. I spoke to the patient's and explained to him how serious her overall prognosis was. She was intubated prior to transfer. He was given succinyl choline only. It abated on the first attempt with a 7F ET tube and bilateral breath sounds were heard. Disposition: Transfer to the [facility] Impression: Acute abdominal pain secondary to ruptured 9.5 cm abdominal aortic aneurysm or retroperitoneal bleeding. Severe hypotension Lactic acidosis Hemorrhagic shock Critical care time 35 minutes This note was generated with [employer] dictation software. It may contain incorrect words, spelling, and punctuation that were not noted in review of the chart prior to signing ED Disposition - Plan for ED Patient: Disposition: [facility] - Main Chief Complaint: Abd Pain Referrals: Care Physician,No Primary [Primary Care Provider] -
--- NOTE | 2017-10-23 03:14 | ED.RN ---
0210 started 1st unit of blood, unit number [id number]. 0216 started 2nd unit of blood, unit number [id number]. [address] Antunez. chest x-ray for placement was not done due to life flight team was ready for transport. 0230 started 3rd unit of blood, unit number [id number]. 0232 started 4th unit of blood, unit number [id number]. 0235 life flight member placed at 18fr og. 0240 life flight left with pt. 0242 report given to evelio casiano at [facility].
[2017-10-23 05:40] LABS: Reflex Lactate? Y
--- NOTE | 2017-10-23 08:44 | DCINST.ED_ITS ---
ED Disposition - Plan for ED Patient: Disposition: [facility] [place] - Main Chief Complaint: Abd Pain Referrals: Care Physician,No Primary [Primary Care Provider] -
--- NOTE | 2017-10-23 08:44 | ED.DEP ---
ED Disposition - Plan for ED Patient: Disposition: [facility] - Main Chief Complaint: Abd Pain Referrals: Care Physician,No Primary [Primary Care Provider] -
== END 2017-10-23 02:40 | disposition short-term general hospital (02) ==
PROVIDERS: Emergency Provider Emergency Medicine
DX: I71.3 Abdominal aortic aneurysm, ruptured (principal); R57.8 Other shock; I95.9 Hypotension, unspecified; E87.2 Acidosis; R11.2 Nausea with vomiting, unspecified; Z72.0 Tobacco use; Z90.49 Acquired absence of other specified parts of digestive tract
CPT/HCPCS: 31500; 36430; 51702; 74177; 80048; 80076; 81001; 83605; 83690; 84484; 85025; 85610; 86850; 86900; 86920; 86922; 93005; 96374; 96375; 99251; 99285; J7030; J7040; P9016; Q9967; A4216; G0463; J2405